=== PATIENT | female | born 1950 | race Caucasian/White ===

== ENCOUNTER 2018-03-25 06:39 | Day surgery (SDC) | payer MEDICARE, BC ==
--- NOTE | 2018-03-20 10:23 | HP ---
AMENDED REPORT NOW INCLUDES DESIGNATED COSIGNER HISTORY AND PHYSICAL: DATE OF ADMISSION/SURGERY: 03/25/18 DATE OF OFFICE VISIT: 03/19/18 SURGEON: Iris Nunez MD * (DICTATED BY PERRI CARLOS) PROCEDURE: Right knee arthroscopy with partial meniscectomy, possible chondroplasty, and possible synovectomy. CHIEF COMPLAINT: Right knee pain. HISTORY OF PRESENT ILLNESS: Ms. Arenas is a 67-year-old female with complaints of right knee pain. An MRI confirms a meniscus tear and she has elected to proceed with surgery. PAST MEDICAL HISTORY: Hypothyroidism. PAST SURGICAL HISTORY: Left knee arthroscopy, hernia repair, and foot surgery x3. CURRENT MEDICATIONS: 1. Levothyroxine 125 mcg daily. 2. Meloxicam 15 mg daily. ALLERGIES: AMOXICILLIN causing a rash. FAMILY HISTORY: History of cancer. SOCIAL HISTORY: She is a 67-year-old female. She lives with her . She does not smoke or use drugs. She uses occasional alcohol. REVIEW OF SYSTEMS: A complete 14-point review of systems was reviewed with the patient. It was positive for hypothyroidism. She denies a history of DVT, PE, hepatitis, HIV or anesthesia problems. PHYSICAL EXAMINATION GENERAL: She is well developed, well nourished, in no acute distress. VITAL SIGNS: She stands 65 inches tall, weighs 180 pounds. Her blood pressure is 124/76, her heart rate is 82. HEENT: Normocephalic, atraumatic. NECK: Supple. No palpable lymph nodes. PULMONARY: Lungs are clear to auscultation bilaterally. CARDIO: Regular rate and rhythm. Strong S1, S2. ABDOMEN: Soft, nontender, nondistended. NEUROLOGICAL: She is alert and oriented x3. MUSCULOSKELETAL: Right lower extremity, the skin is intact. There are no open wounds or abrasions. There is a mild to moderate joint effusion. She has some tenderness over the medial joint line. Range of motion is 5 to 120 degrees of flexion. Positive Apley's, positive Heber's. She has 2+ dorsalis pedis pulse. Intact sensation. Her lower extremity muscle group strengths are intact at 5/5. DIAGNOSTIC STUDIES/LAB DATA: An MRI of the right knee from 03/08/18 shows a tear of the body and posterior root of the medial meniscus as well as an OCD defect. ASSESSMENT AND PLAN: Ms. Arenas is a 67-year-old female with complaints of right knee pain secondary to a medial meniscus tear. She has elected to proceed with a right knee arthroscopy with partial meniscectomy, possible chondroplasty, possible synovectomy. Her surgery is scheduled for 03/25/[address] Nunez discussed the risks and benefits of the surgery at today's visit and all of her questions were answered. She will follow up with Dr. Nunez 2 weeks after the surgery. PERRI CARLOS [id number]/[facility] #: [id number] [place]
[~2018-03-25 06:39] MED LIST: Buffered Lidocaine 0.9% SYRIN* 5 ML/SYR SYRINGE INTRADERM ONE; Dexamethasone IV* 4 MG/ML 1 ML (4 MG) IV SLOW PU ONE; Famotidine IV* 10 MG/ML 2 ML (20 mg) IV ONE
[2018-03-25] MEDS ORDERED: methylPREDNISolone ACETATE 80* 80 MG/ML 1 ML VIAL ONE (06:58)
[2018-03-25] MEDS ORDERED: EPINEPHRINE 1 MG/ML 1 ML VIAL ONE (06:59)
[2018-03-25] MEDS ORDERED: Bupivacaine 0.5% SDV PF* 30ML VIAL ONE (06:59)
[2018-03-25] MEDS ORDERED: Buffered Lidocaine 0.9% SYRIN* 5 ML/SYR SYRINGE ONE (07:09)
[2018-03-25] MEDS ORDERED: Dexamethasone IV* 4 MG/ML 1 ML (4 MG) ONE (07:09)
[2018-03-25] MEDS ORDERED: Clindamycin 900 MG/D5W BAG(*) 900 MG/50 ML BAG IVPB ONE (07:09)
[2018-03-25] MEDS ORDERED: Famotidine IV* 10 MG/ML 2 ML (20 mg) ONE (07:09)
[2018-03-25] MEDS ORDERED: fentaNYL* 50 MCG/ML 2 ML VIAL (100 MCG VIAL) ONE (08:04)
[2018-03-25] MEDS ORDERED: Propofol* 10 MG/ML 20 ML BTL IV PUSH ONE ×2 (08:04→11:24)
[2018-03-25] MEDS ORDERED: Lidocaine 2% PF * 5 ML VIAL ONE (08:04)
[2018-03-25] MEDS ORDERED: Ondansetron INJ* 2 MG/ML VIAL ONE (08:56)
[2018-03-25] MEDS ORDERED: Ketorolac INJ* 30 MG/ML 1 ML VIAL ONE (08:56)
[2018-03-25] MEDS ORDERED: Naloxone* 0.4 MG/ML 1 ML VIAL IV PRN (08:57)
[2018-03-25] MEDS ORDERED: DiMENhydriNATE IV* 50 MG/ML VIAL IV PUSH PRN (08:57)
[2018-03-25] MEDS ORDERED: fentaNYL* 50 MCG/ML 2 ML VIAL (100 MCG VIAL) IV PRN (08:57)
[2018-03-25 10:40] VITALS: BP 99/77
[2018-03-25] MEDS ORDERED: Phenylephrine INJ* 10 MG/ML 1 ML VIAL (10 MG) ONE (11:24)
--- NOTE | 2018-03-26 09:00 | OP ---
DATE OF OPERATION: 03/25/18 - [facility] DATE OF : 52 SURGEON: Iris Nunez MD CABLE PULLER: PERRI Watt. Mr. Ramirez did help throughout the procedure with preparation of the leg, wound retraction, manipulation of the knee, and wound closure. ANESTHESIOLOGIST: Dr. Batista. ANESTHESIA: General. PRE-OP DIAGNOSES: Right knee osteoarthritis, medial osteochondral defect, medial meniscal tear. POST-OP DIAGNOSES: Right knee osteoarthritis, medial osteochondral defect, medial meniscal tear. OPERATIVE PROCEDURE: Right knee arthroscopy with partial medial meniscectomy. COMPLICATIONS: None. ESTIMATED BLOOD LOSS: Less than 25 cc. SPECIMENS: None. BRIEF HISTORY/INDICATION: Ms. Arenas is a 67-year-old female with several weeks of severe right knee pain and mechanical symptoms. She was found on the MRI to have a significant medial meniscal tear as well as osteochondral defect of the medial femoral condyle. Plain films and MRI showed some mild-to- moderate arthritic changes. The patient failed conservative treatment with anti -inflammatories, pain medication, and intraarticular injection. Due to continued pain and mechanical symptoms, she elected to undergo right knee arthroscopy with partial meniscectomy, possible chondroplasty, possible synovectomy. Informed consent was obtained from the patient. She understood the risks of surgery included, but were not limited to, bleeding, infection, damage to nearby structures, continued pain, need for further surgery, retear of the meniscus, stroke, heart attack, blood clot, and . She wished to proceed. INTRAOPERATIVE FINDINGS: Intraoperatively, the patient had some grade 3 and 4 Outerbridge cartilage changes in the medial and patellofemoral compartment. Patellofemoral compartment was the most affected with some exposed subchondral bone. She was found to have a radial tear in the posterior one-third of the medial meniscus involving the white-red zone. The osteochondral defect was not palpable through the cartilage or visible. DESCRIPTION OF PROCEDURE: Ms. Arenas was identified in the preanesthesia unit. Her right lower extremity was marked as the correct operative site. Informed consent was signed and placed in the chart. The patient was taken to the operating room and placed under general anesthesia. The right lower extremity was prepped and draped in the usual sterile fashion. Preop time-out was made to correctly identify the patient, side and site. Appropriate perioperative antibiotics were given within 1 hour of incision. A 0.5 cm anterolateral portal incision was made with a 10 blade and carried down to the capsule. Trocar was introduced. As soon as the light and water sources were turned on, there was immediate visualization of the suprapatellar pouch. A tour was taken. Suprapatellar pouch had no obvious abnormality. Patellofemoral compartment showed some grade 3 and 4 Outerbridge cartilage changes with exposed subchondral bone along the medial patellar facet. Medial gutter showed no loose body or plica. Medial compartment showed some grade 3 and 4 Outerbridge cartilage changes along the medial femoral condyle. Radial tear at the posterior aspect of the medial meniscus was well visualized. No exposed subchondral bone along the medial femoral condyle or visible OCD. ACL and PCL appeared to be intact. The knee was placed in the [id number] position. Lateral compartment showed minimal degenerative changes and no obvious meniscal tear. Lateral gutter showed no loose body or plica. Under direct visualization, a medial portal incision was made. Probe was introduced and a second tour of the knee joint was performed. No additional findings were noted. The straight biter and shaver were used to perform partial medial meniscectomy along the posterior third of the medial meniscus in the white- red zone. A smooth border of the meniscus was obtained. Further probing showed no additional tears. Radiofrequency ablation wand was used to further smooth the edge of the meniscus. The knee was copiously irrigated with sterile saline. All instruments were removed. Incisions were closed using 3-0 nylon suture. Intraarticular injection of 80 mg of Depo-Medrol and 6 cc of 0.25 % Marcaine was placed in the knee joint. The patient's incisions were covered with Xeroform, 4x4's, and Webril. Pavan wrap and cold pack were placed over this. The patient's anesthesia was reversed without difficulty. She was taken to the PACU in stable condition. Intended weightbearing will be weightbearing as tolerated. Intended DVT prophylaxis will be aspirin. She will have 5 days of Keflex due to a superficial abrasion distal to the incisions near the tibial tubercle. She will follow up in 2 weeks' time for a recheck. [id number]/[facility] #: [id number] [place]
== END 2018-03-25 10:49 | disposition home or self-care (01) ==
LOC: OR 06:39
PROVIDERS: ATTEND Orthopaedic Surgery Adult Reconstructive Orthopaedic Surgery
DX: S83.241A Other tear of medial meniscus, current injury, right knee, initial encounter (principal); M17.11 Unilateral primary osteoarthritis, right knee; E03.9 Hypothyroidism, unspecified; X58.XXXA Exposure to other specified factors, initial encounter; Y92.9 Unspecified place or not applicable
CPT/HCPCS: J1040; J1100; J1885; J2405; J2704; J3010